=== PATIENT | female | born 1990 | race Caucasian/White ===

== ENCOUNTER 2022-09-15 08:04 | Day surgery (SDC) | payer BC ==
[~2022-09-15 08:04] MED LIST: Lactated Ringers 1,000 ML IV SCH; Lidocaine 1% 5 ML VIAL ONE; Lidocaine 1%/Sod Bicarbonate in NS 8.4% 1 ML Syringe IDERM PRN; Rocuronium 50 MG/5 ML Vial ONE; Sodium Chloride 0.9% 10 ML Syringe FLUSH PRN; Sodium Chloride 0.9% 10 ML Syringe FLUSH SCH
[2022-09-15] MEDS ORDERED: Lidocaine 1% 2 ML ONE (08:24)
[2022-09-15] MEDS ORDERED: Midazolam 1 MG/ML 2 ML SDV ONE (08:24)
[2022-09-15] MEDS ORDERED: fentaNYL 100 MCG/2 ML SDV ONE (08:25)
[2022-09-15] MEDS ORDERED: Propofol 200 MG/20 ML SDV ONE (08:25)
[2022-09-15] MEDS ORDERED: Iopamidol 612 MG/ML 50 ML SDV ONE (08:27)
[2022-09-15] MEDS ORDERED: Sodium Chloride 0.9% 50 ML SDV ONE (08:27)
[2022-09-15] MEDS ORDERED: Bupivacaine 0.5% 30 ML SDV ONE (08:27)
[2022-09-15] MEDS ORDERED: Bupivacaine 0.5%/EPINEPHrine 1:200,000 50 ML MDV ONE (08:31)
[2022-09-15] MEDS ORDERED: Lidocaine 1% 30 ML SDV ONE (08:31)
[2022-09-15] MEDS ORDERED: HYDROmorphone 0.5 MG/0.5 ML Syringe IVPUSH PRN (08:47)
[2022-09-15] MEDS ORDERED: Ondansetron 4 MG/2 ML SDV IVPUSH PRN (08:47)
[2022-09-15] MEDS ORDERED: fentaNYL 100 MCG/2 ML SDV IVPUSH PRN (08:47)
[2022-09-15] MEDS ORDERED: VANCOmycin 1.5 GM/300 ML 1.5 GM in Premix Bag 1 BAG IV ONE (09:15)
[2022-09-15] MEDS ORDERED: Ondansetron 4 MG/2 ML SDV ONE (09:51)
[2022-09-15] MEDS ORDERED: Dexamethasone 4 MG/ML 5 ML MDV ONE (09:51)
[2022-09-15] MEDS ORDERED: Sugammadex Sodium 200 MG/2 ML VIAL ONE (10:02)
[2022-09-15] MEDS ORDERED: Ketorolac 30 MG/ML SDV ONE (10:05)
[2022-09-15] MEDS ORDERED: oxyCODONE 5 MG Tab PO ONE (12:28)
== END 2022-09-15 14:20 | disposition home or self-care (01) ==
LOC: JD.SDS 08:04
PROVIDERS: ATTEND Surgery
DX: K80.10 Calculus of gallbladder with chronic cholecystitis without obstruction (principal); F41.9 Anxiety disorder, unspecified; G47.00 Insomnia, unspecified; G43.909 Migraine, unspecified, not intractable, without status migrainosus; F31.60 Bipolar disorder, current episode mixed, unspecified; D69.6 Thrombocytopenia, unspecified; Z88.0 Allergy status to penicillin; Z88.1 Allergy status to other antibiotic agents; Z79.899 Other long term (current) drug therapy; Z98.890 Other specified postprocedural states
CPT/HCPCS: 36415; 47562; 80053; 81025; A9270; J1100; J1170; J1885; J2250; J2405; J2704; J3010; J3370; J3490; J7120; 00790; Q9967

== ENCOUNTER 2024-09-16 12:10 | Emergency (ER) | payer BC ==
[2024-09-16] MEDS: Sodium Chloride 0.9% 1,000 ML IV ONE (13:15)
[2024-09-16] MEDS: Ketorolac 30 MG/ML SDV IVPUSH ONE (13:15)
[2024-09-16] MEDS: Sodium Chloride 0.9% 10 ML Syringe FLUSH PRN (13:17)
[2024-09-16 13:31] LABS: BASOPHILS PERCENT AUTO 0.4 % (0.0-1.0); EOSINOPHILS ABSOLUTE AUTO 0.1 K/mm3 (0.0-0.4); EOSINOPHILS PERCENT AUTO 1.6 % (0.0-6.0); HEMATOCRIT 42.8 % (37.0-47.0); HEMOGLOBIN 14.3 gm/dl (12.0-16.0); IMMATURE GRAN ABSOLUTE AUTO 0.03 K/mm3 (0.00-0.05); IMMATURE GRAN PERCENT AUTO 0.4 % (0.0-0.4); LYMPHOCYTES ABSOLUTE AUTO 1.6 K/mm3 (1.0-4.8); LYMPHOCYTES PERCENT AUTO 22.6 % (24.0-44.0); MEAN CORPUSCULAR HEMOGLOBIN 29.3 pg (28.0-32.0); MEAN CORPUSCULAR HGB CONC 33.4 g/dl (32.0-36.0); MEAN CORPUSCULAR VOLUME 87.7 fl (83.0-99.0); MEAN PLATELET VOLUME 11.5 fl (9.4-12.3); MONOCYTES ABSOLUTE AUTO 0.4 K/mm3 (0.0-0.8); NEUTROPHILS ABSOLUTE AUTO 4.8 K/mm3 (1.8-7.7); PLATELET COUNT,PLT 152 K/mm3 (150-400); RED BLOOD CELL COUNT 4.88 M/mm3 (4.10-5.30); WHITE BLOOD CELL COUNT,WBC 7.02 K/mm3 (3.9-11.3)
[2024-09-16 13:37] LABS: APPEARANCE,URINE CLEAR (Clear); BILIRUBIN,URINE NEGATIVE (Negative); COLOR,URINE YELLOW (Yellow); GLUCOSE,URINE NEGATIVE (Negative); KETONES,URINE NEGATIVE (Negative); LEUKOCYTE ESTERASE,URINE TRACE (Negative); NITRITE,URINE NEGATIVE (Negative); OCCULT BLOOD,URINE NEGATIVE (Negative); PH,URINE 6.5 (5.0-8.0); PROTEIN,URINE NEGATIVE (Negative); UROBILINOGEN,URINE 0.2 (0.2-1.0)
[2024-09-16 13:56] LABS: A/G RATIO 1.2 (1-2); ALBUMIN 3.8 g/dl (3.4-5.0); ANION GAP 12.8 (5-15); BILIRUBIN TOTAL 0.4 mg/dL (0.2-1.0); BUN/CREATININE RATIO 11.1 (14-18); CALCIUM 9.2 mg/dL (8.5-10.1); CREATININE 0.9 mg/dL (0.55-1.02); EST CRCL DRUG DOSING (CG) 92.05 mL/min; POTASSIUM,K 3.8 mEq/L (3.5-5.1)
[2024-09-16 14:10] LABS: BACTERIA,URINE FEW /hpf (FEW); MUCUS,URINE MODERATE /hpf (FEW); RBC,URINE 0-5 /hpf (0-5); WBC,URINE 0-5 /hpf (0-5)
== END 2024-09-16 15:50 | disposition home or self-care (01) ==
LOC: JD.ED 12:10
DX: N39.0 Urinary tract infection, site not specified (principal); Z90.89 Acquired absence of other organs; Z88.0 Allergy status to penicillin; Z88.8 Allergy status to other drugs, medicaments and biological substances; Z79.899 Other long term (current) drug therapy
CPT/HCPCS: 36415; 74176; 80053; 81001; 81025; 83735; 85025; 87086; 96374; 99284; J1885; J3490; J7030